=== PATIENT | male | born 1965 | race Caucasian/White ===

== ENCOUNTER 2019-08-03 11:46 | Emergency (ER) | payer OTHER ==
[2019-08-03] MEDS ORDERED: NA CHLORIDE 0.9% 1,000 ML ONE (12:07)
--- NOTE | 2019-08-03 12:34 | RAD REPORT ---
EXAM DESCRIPTION: Johnny Single View08/03/2019 12:25 pm CLINICAL HISTORY: Hypertension COMPARISON: 2011 FINDINGS: The lungs appear clear of acute infiltrate. The heart is normal size IMPRESSION: No acute abnormalities displayed
[2019-08-03 13:03] LABS: Absolute Lymphocytes (CBC) 1.7 K/uL (0.7-4.9); Basophils % 0.6 % (0-1.3); Lymphocytes % 16.8 % (15.3-44.8); MPV 7.2 fL (7.6-11.3)
[2019-08-03 13:10] LABS: Protime INR 1.03
[2019-08-03 13:58] LABS: ALT/SGPT 58 U/L (12-78); AST/SGOT 29 U/L (15-37); Albumin 3.7 g/dL (3.4-5.0); Alkaline Phosphatase 89 U/L (45-117); BUN Blood Urea Nitrogen 15 mg/dL (7-18); Bicarbonate 25 mmol/L (21-32); Bilirubin Direct 0.2 mg/dL (0-0.2); Bilirubin Total 0.8 mg/dL (0.2-1.0); Creatine Phosphokinase 81 U/L (39-308); Glucose Level 92 mg/dL (74-106); Magnesium 2.4 mg/dL (1.8-2.4); NT PRO-BNP 24 pg/mL (<125); Potassium 3.7 mmol/L (3.5-5.1); Protein, Total 7.5 g/dL (6.4-8.2); Sodium Level 142 mmol/L (136-145); Troponin (Emerg Dept Use Only) < 0.02 ng/mL (0.0-0.045)
--- NOTE | 2019-08-03 14:29 | EDPHYS ---
Physician Documentation [facility] Name: Rico Mcclure Age: 54 yrs Sex: Male : 1965 Arrival Date: 08/03/2019 Time: 11:47 Bed 16 Private MD: ED Physician Valdez Miles HPI: 08/03 12:05 This 54 yrs old Male presents to ER via EMS with complaints of Heat Exposure. cp 12:05 The patient has experienced syncope, lost consciousness. Onset: The symptoms/episode cp began/occurred just prior to arrival. 12:05 Duration: This was a single episode, that lasted an unknown period of time. Context: cp occurred at work, occurred while the patient was sitting, Just prior to the episode the patient experienced lightheadedness, Patient reports he was working outside all morning, started getting lightheaded so he went and sat in truck. Patient reports after sitting in truck he believes he passed out briefly. Historical: - Allergies: 11:53 No Known Allergies; jl7 - Home Meds: 11:53 Ukno BP medication [Active]; jl7 - PMHx: 11:53 Hypertension; jl7 - Immunization history:: Adult Immunizations unknown. - Social history:: Smoking status: Patient/guardian denies using tobacco. - Ebola Screening: : No symptoms or risks identified at this time. ROS: 12:10 Constitutional: Negative for body aches, chills, fever, poor PO intake. cp 12:10 Eyes: Negative for injury, pain, redness, and discharge. cp 12:10 ENT: Negative for drainage from ear(s), ear pain, sore throat, difficulty swallowing, difficulty handling secretions. 12:10 Cardiovascular: Negative for chest pain, edema, palpitations. 12:10 Respiratory: Negative for cough, shortness of breath, wheezing. 12:10 Abdomen/GI: Negative for abdominal pain, vomiting, diarrhea, constipation, anorexia, black/tarry stool, rectal bleeding. 12:10 Back: Negative for pain at rest, pain with movement. 12:10 : Negative for urinary symptoms, difficulty urinating. 12:10 Neuro: Positive for syncope, Negative for altered mental status, headache, weakness. 12:10 All other systems are negative. Exam: 11:55 ECG was reviewed by the Attending Physician. cp 12:15 Constitutional: The patient appears in no acute distress, alert, awake, cp non-diaphoretic, non-toxic, well developed, well nourished. 12:15 Head/Face: Normocephalic, atraumatic. cp 12:15 Eyes: Periorbital structures: appear normal, Pupils: equal, round, and reactive to light and accomodation, Extraocular movements: intact throughout, Conjunctiva: normal, no exudate, no injection, Sclera: no appreciated abnormality, Lids and lashes: appear normal, bilaterally. 12:15 ENT: External ear(s): are unremarkable, Ear canal(s): are normal, clear, TM's: dullness, bilaterally, Nose: is normal, Mouth: is normal, Posterior pharynx: is normal, airway is patent, no erythema, no exudate. 12:15 Neck: ROM/movement: is normal, is supple, without pain, no range of motions limitations, no nuchal rigidity. 12:15 Chest/axilla: Inspection: normal, Palpation: is normal, no crepitus, no tenderness. 12:15 Cardiovascular: Rate: normal, Rhythm: regular, Pulses: Pulses are 2+ in right radial artery and left radial artery. Heart sounds: murmur, not appreciated, Edema: is not appreciated, JVD: is not appreciated. 12:15 Respiratory: the patient does not display signs of respiratory distress, Respirations: normal, no use of accessory muscles, no retractions, no splinting, no tachypnea, labored breathing, is not present, Breath sounds: are clear throughout, no decreased breath sounds, no stridor, no wheezing. 12:15 Abdomen/GI: Inspection: abdomen appears normal, Bowel sounds: active, all quadrants, Palpation: abdomen is soft and non-tender, in all quadrants, rebound tenderness, is not appreciated, voluntary guarding, is not appreciated, involuntary guarding, is not appreciated. 12:15 Back: pain, is absent, ROM is normal. 12:15 Skin: no rash present. 12:15 Neuro: Orientation: to person, place \T\ time. Mentation: is normal, Cerebellar function: is grossly normal, Motor: moves all fours, strength is normal, Sensation: is normal. Vital Signs: 11:53 BP 124 / 83; Pulse 75; Resp 16 S; Temp 98.2(O); Pulse Ox 97% on R/A; Pain 0/10; jl7 13:00 BP 126 / 83; Pulse 81; Resp 16 S; Pulse Ox 98% on R/A; jl7 14:00 BP 122 / 84; Pulse 87; Resp 16 S; Pulse Ox 100% on R/A; Pain 0/10; jl7 MDM: 11:55 Patient medically screened. 14:27 Data reviewed: vital signs, nurses notes, lab test result(s), EKG, radiologic studies, cp plain films, and as a result, I will discharge patient. 14:27 Differential Diagnosis: cardiac arrhythmia, GI bleed, idiopathic syncope, seizure, cp vasovagal episode. Test interpretation: by ED physician or midlevel provider: ECG, plain radiologic studies. Counseling: I had a detailed discussion with the patient and/or guardian regarding: the historical points, exam findings, and any diagnostic results supporting the discharge/admit diagnosis, lab results, radiology results, to return to the emergency department if symptoms worsen or persist or if there are any questions or concerns that arise at home. Response to treatment: the patient's symptoms have markedly improved after treatment, the patient's condition has returned to base line, patient is well hydrated. and as a result, I will discharge patient. 08/03 11:50 Order name: Basic Metabolic Panel; Complete Time: 14:02 08/03 14:03 Interpretation: Normal except: CL 108; GFR 59; CA 8.4. 08/03 11:50 Order name: CBC with Diff; Complete Time: 13:36 08/03 13:36 Interpretation: Normal except: RBC 5.50; HCT 51.0; MPV 7.2; NORMAN% 74.0. 08/03 11:50 Order name: LFT's; Complete Time: 14:02 08/03 14:02 Interpretation: Normal except: GLOB 3.8; A/G 1.0. 08/03 11:50 Order name: Magnesium; Complete Time: 14:02 08/03 11:50 Order name: NT PRO-BNP; Complete Time: 14:02 08/03 11:50 Order name: PT-INR; Complete Time: 13:36 08/03 11:50 Order name: Troponin (emerg Dept Use Only); Complete Time: 14:02 08/03 11:50 Order name: XRAY Chest (1 view); Complete Time: 13:36 cp 08/03 11:50 Order name: EKG; Complete Time: 11:53 cp 08/03 11:50 Order name: Cardiac monitoring; Complete Time: 12:15 cp 08/03 11:50 Order name: CPK; Complete Time: 14:02 cp 08/03 13:54 Order name: Glucose, Ancillary Testing; Complete Time: 14:02 EDMS 08/03 14:15 Order name: Urine Dipstick--Ancillary (enter results) 08/03 11:50 Order name: EKG - Nurse/Tech; Complete Time: 12:15 cp 08/03 11:50 Order name: IV Saline Lock; Complete Time: 12:16 cp 08/03 11:50 Order name: Labs collected and sent; Complete Time: 12:16 cp 08/03 11:50 Order name: O2 Per Protocol; Complete Time: 12:15 cp 08/03 11:50 Order name: O2 Sat Monitoring; Complete Time: 12:15 08/03 11:50 Order name: Urine Dipstick-Ancillary (obtain specimen); Complete Time: 14:23 cp 08/03 12:13 Order name: Labs - recollect needed; Complete Time: 12:54 bd EC:55 Rate is 73 beats/min. Rhythm is regular. CA interval is normal. QRS interval is normal. cp QT interval is normal. Interpreted by me. Reviewed by me. Administered Medications: 12:15 Drug: NS 0.9% 1000 ml Route: IV; Rate: 1 bolus; Site: right wrist; jl7 13:55 Follow up: Response: No adverse reaction; IV Status: Completed infusion; IV Intake: jl7 1000ml Disposition: 16:23 Co-signature as Attending Physician, Valdez Miles MD. rn Disposition: 08/03/19 14:28 Discharged to Home. Impression: Heat syncope. - Condition is Stable. - Discharge Instructions: Heat Exhaustion Information, Form - Excuse from Work, School, or Physical Activity. - Medication Reconciliation Form, Thank You Letter, Antibiotic Education, Prescription Opioid Use form. - Follow up: Private Physician; When: 2 - 3 days; Reason: Recheck today's complaints. - Problem is new. - Symptoms have improved. Signatures: Dispatcher [employer] EDCO Sigrid López Roman, MD MD rn Gurinder Queen PA PA cp Leal, Jahala, RN RN jl7 Corrections: (The following items were deleted from the chart) 14:03 14:02 Normal except: CL 108; GFR 59. cp cp 14:41 14:28 08/03/2019 14:28 Discharged to Home. Impression: Heat syncope. Condition is jl7 Stable. Forms are Medication Reconciliation Form, Thank You Letter, Antibiotic Education, Prescription Opioid Use. Follow up: Private Physician; When: 2 - 3 days; Reason: Recheck today's complaints. Problem is new. Symptoms have improved. cp
--- NOTE | 2019-08-03 14:29 | ER ---
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 Pt was A\\T\\Ox4, pale and diaphoretic upon EMS arrival. Pt currently pink, warm and dry on arrival to ED. Transition of care: patient was not received from another setting of care. Onset of symptoms was August 03, 2019. Risk Assessment: Do you want to hurt yourself or someone else? Patient reports no desire to harm self or others. Initial Sepsis Screen: Does the patient meet any 2 criteria? Yes Does the patient have a suspected source of infection? No. Patient's initial sepsis screen is negative. Care prior to arrival: Medication(s) given: Normal saline infusion, 500 mL, IV initiated. 18 GA, in the right wrist, Glucose check: 115. 11:47 Method Of Arrival: EMS: [facility] jl7 11:47 Acuity: JOVAN 3 jl7 Triage Assessment: 11:53 General: Appears in no apparent distress. uncomfortable, Behavior is calm, cooperative, jl7 appropriate for age. Pain: Denies pain. Neuro: Level of Consciousness is awake, alert, obeys commands, Oriented to person, place, time, situation. Cardiovascular: Heart tones S1 S2 present Patient's skin is warm and dry. Rhythm is regular. Respiratory: Airway is patent Respiratory effort is even, unlabored, Respiratory pattern is regular, symmetrical, Breath sounds are clear bilaterally. Derm: Skin is pink, warm \\T\\ dry. Historical: - Allergies: 11:53 No Known Allergies; jl7 - Home Meds: 11:53 Uknown BP medication [Active]; jl7 - PMHx: 11:53 Hypertension; jl7 - Immunization history:: Adult Immunizations unknown. - Social history:: Smoking status: Patient/guardian denies using tobacco. - Ebola Screening: : No symptoms or risks identified at this time. Screenin:54 Abuse screen: Denies threats or abuse. Denies injuries from another. Nutritional jl7 screening: No deficits noted. Tuberculosis screening: No symptoms or risk factors identified. Fall Risk IV access (20 points). Total Deleon Fall Scale indicates No Risk (0-24 pts). Assessment: 11:54 General: See triage assessment. jl7 13:00 Reassessment: Patient appears in no apparent distress at this time. Patient and/or jl7 family updated on plan of care and expected duration. Pain level reassessed. Patient is alert, oriented x 3, equal unlabored respirations, skin warm/dry/pink. Patient denies pain at this time. 14:00 Reassessment: Patient appears in no apparent distress at this time. No changes from jl7 previously documented assessment. Patient and/or family updated on plan of care and expected duration. Pain level reassessed. Patient is alert, oriented x 3, equal unlabored respirations, skin warm/dry/pink. Vital Signs: 11:53 BP 124 / 83; Pulse 75; Resp 16 S; Temp 98.2(O); Pulse Ox 97% on R/A; Pain 0/10; jl7 13:00 BP 126 / 83; Pulse 81; Resp 16 S; Pulse Ox 98% on R/A; jl7 14:00 BP 122 / 84; Pulse 87; Resp 16 S; Pulse Ox 100% on R/A; Pain 0/10; jl7 ED Course: 11:47 Patient arrived in ED. jl7 11:48 Gurinder Queen PA is PHCP. cp 11:48 Valdez Miles MD is Attending Physician. cp 11:51 Triage completed. jl7 11:53 Arm band placed on right wrist. jl7 11:54 Patient has correct armband on for positive identification. Placed in gown. Bed in low jl7 position. Call light in reach. Side rails up X2. radiation monitor on. Pulse ox on. NIBP on. Warm blanket given. 11:54 Maintain EMS IV. Dressing intact. Good blood return noted. Site clean \\T\\ dry. Gauge \\T\\ jl 7 site: 18 Right wrist. 11:56 Rosendo Black RN is Primary Nurse. jl7 12:26 XRAY Chest (1 view) In Process Unspecified. EDMS 13:57 Awaiting lab results. jl7 14:00 Urine collected: clean catch specimen, clear. 3 14:40 No provider procedures requiring assistance completed. IV discontinued, intact, jl7 bleeding controlled, No redness/swelling at site. Pressure dressing applied. Administered Medications: 12:15 Drug: NS 0.9% 1000 ml Route: IV; Rate: 1 bolus; Site: right wrist; jl7 13:55 Follow up: Response: No adverse reaction; IV Status: Completed infusion; IV Intake: jl7 1000ml Intake: 13:55 IV: 1000ml; Total: 1000ml. jl7 Outcome: 14:28 Discharge ordered by . nadya 14:40 Discharged to home ambulatory. [facility] [place] 14:40 Condition: stable 14:40 Discharge instructions given to patient, Instructed on discharge instructions, follow up and referral plans. Demonstrated understanding of instructions, follow-up care. 14:41 Patient left the ED. jl7 Signatures: Dispatcher [employer] EDCT Gurinder Queen PA PA cp Leal, Jahala, RN RN jl7 Ester Suero 3
[2019-08-03 14:33] LABS: Urine Blood NEGATIVE (NEG); Urine Glucose NEGATIVE (NEG); Urine Protein 1+ (NEG)
[2019-08-03 14:47] VITALS: TEMP 98.2
[2019-08-03 14:50] VITALS: BP 122/84; O2SAT 100
--- NOTE | 2019-08-03 16:56 | EKG ---
Test Date: 2019-08-03 Test Time: 11:47:15 Director [employer]: PREMA MEASUREMENT RESULTS: Intervals: Rate: 73 OK: 150 QRSD: 84 QT: 384 QTc: 423 [place]: P: 31 OK: 150 QRS: 27 T: 37 INTERPRETIVE STATEMENTS: Normal sinus rhythm Normal ECG Compared to ECG 11/30/2016 15:40:27 Sinus tachycardia no longer present Electronically Signed On 08-03-19 16:54:43 CDT by Colten Ochoa
== END 2019-08-03 14:41 | disposition home or self-care (01) ==
LOC: ER 11:46
DX: T67.1XXA Heat syncope, initial encounter (principal); X58.XXXA Exposure to other specified factors, initial encounter; Y93.89 Activity, other specified; Y92.89 Other specified places as the place of occurrence of the external cause; Y99.8 Other external cause status; I10 Essential (primary) hypertension
CPT/HCPCS: 96361; 93005; 85025; 80048; 36415; 83735; 82550; 85610; 82962; 80076; 81003; 84484; 83880; 71045; 96360; 99284; J7030

== ENCOUNTER 2023-09-17 07:57 | Emergency (ER) | payer OTHER ==
--- NOTE | 2023-09-17 08:53 | RAD REPORT ---
EXAM DESCRIPTION: CT - Head Brain Wo Cont - 09/17/2023 8:46 am CLINICAL HISTORY: Syncope COMPARISON: none TECHNIQUE: Computed axial tomography of the head was obtained. IV contrast was not requested. All CT scans are performed using dose optimization technique as appropriate and may include automated exposure control or mA/KV adjustment according to patient size. FINDINGS: An intracranial bleed is not seen The ventricles are normal in caliber No significant hypodense areas within the brain visualized No extra-axial fluid collection is noted. Fluid within the sinuses/ mastoids is not seen IMPRESSION: No acute intracranial abnormality is seen If patient's symptoms persist MRI of the brain would be recommended
[2023-09-17 08:57] LABS: Hematocrit 54.6 % (39.6-49.0); Lymphocytes % 12.2 % (15.3-44.8); MCV 92.5 fL (80-100); MPV 7.4 fL (7.6-11.3); Platelets 207 thou/uL (152-406)
[2023-09-17 09:02] LABS: Protime INR 0.99
[2023-09-17 09:14] LABS: Albumin 3.6 g/dL (3.4-5.0); Bilirubin Direct 0.1 mg/dL (0-0.2); Bilirubin Indirect, Calculated 0.3 mg/dL (0.2-0.8); Bilirubin Total 0.4 mg/dL (0.2-1.0); Magnesium 2.2 mg/dL (1.6-2.4); Potassium 3.7 mEq/L (3.5-5.1); Protein, Total 7.6 g/dL (6.4-8.2); Troponin High Sensitivity 6.4 pg/mL (<58.9)
[2023-09-17] MEDS ORDERED: ACETAMINOPHEN 500 MG TAB ONE (09:23)
[2023-09-17] MEDS ORDERED: NA CHLORIDE 0.9% 1,000 ML ONE (09:23)
--- NOTE | 2023-09-17 10:51 | RAD REPORT ---
EXAM DESCRIPTION: CT - Chest For Pe Angio - 09/17/2023 10:38 am CLINICAL HISTORY: Chest pain COMPARISON: None. TECHNIQUE: Dynamically enhanced axial 3 mm thick images of the chest were obtained during administra tion of 100 mL Isovue 370 IV contrast. Coronal and oblique reconstruction images were generated and r eviewed. Exam utilizes a protocol for optimal evaluation of pulmonary arterial tree. Maximum intensity projections 3D imaging was utilized All CT scans are performed using dose optimization technique as appropriate and may include automated exposure control or mA/KV adjustment according to patient size. FINDINGS: A pulmonary embolus is not seen. A thoracic aortic aneurysm is not noted. A pleural effusion is not seen. A pericardial effusion is not seen. A lung consolidation is not present. Mild ground-glass opacities left lung IMPRESSION: Negative for a pulmonary embolism.
--- NOTE | 2023-09-17 11:00 | RAD REPORT ---
EXAM DESCRIPTION: Johnny Single View09/17/2023 10:23 am CLINICAL HISTORY: Cough COMPARISON: 2018 FINDINGS: The lungs appear clear of acute infiltrate. The heart is normal size IMPRESSION: No acute abnormalities displayed
--- NOTE | 2023-09-17 11:23 | ER ---
Nurse's Notes [facility] Name: Rico Mcclure Age: 58 yrs Sex: Male : 1965 Arrival Date: 09/17/2023 Time: 07:57 Bed 20 Private MD: Diagnosis: Syncope Near;syncope;headache;dehydration Presentation: 09/17 08:12 Chief complaint: EMS states: Pt had reported not feeling well with flu like symptoms kd3 that's start about a week ago. Pt states that today he was driving to work and doesn't remember some parts of the drive. When he got to work, pt got out of his car and then woke up on the ground in the parking lot. Pt states that the back of his head hurt and he has a headache. Coronavirus screen: Vaccine status: Patient reports being unvaccinated. Ebola Screen: No symptoms or risks identified at this time. Initial Sepsis Screen: Does the patient meet any 2 criteria? No. Patient's initial sepsis screen is negative. Does the patient have a suspected source of infection? No. Patient's initial sepsis screen is negative. Risk Assessment: Do you want to hurt yourself or someone else? Patient reports no desire to harm self or others. Onset of symptoms was September 17, 2023. 08:12 Method Of Arrival: EMS: [facility] kd3 08:12 Acuity: JOVAN 3 kd3 Triage Assessment: 08:15 General: Appears in no apparent distress. Behavior is calm, cooperative. Pain: kd3 Complains of pain in scalp. Neuro: Reports headache occipital area. Neuro: Level of Consciousness is awake, alert, obeys commands, Oriented to person, place, time, situation. Respiratory: Airway is patent Trachea midline Respiratory effort is even, unlabored, Respiratory pattern is regular, symmetrical. Historical: - Allergies: 08:15 No Known Allergies; kd3 - PMHx: 08:15 Hypertension; kd3 - Immunization history:: Adult Immunizations up to date. - Social history:: Smoking status: Patient denies any tobacco usage or history of. - Family history:: not pertinent. Screenin:35 [facility] ED Fall Risk Assessment (Adult) History of falling in the last 3 months, kd3 including since admission No falls in past 3 months (0 pts) Confusion or Disorientation No (0 pts) Intoxicated or Sedated No (0 pts) Impaired Gait No (0 pts) Mobility Assist Device Used No (0 pt) Altered Elimination No (0 pt) Score/Fall Risk Level 0 - 2 = Low Risk Maintained a safe environment. Abuse screen: Denies threats or abuse. Denies injuries from another. Nutritional screening: No deficits noted. Tuberculosis screening: No symptoms or risk factors identified. Assessment: 09:53 General: Appears in no apparent distress. Behavior is calm, cooperative. Neuro: Level kd3 of Consciousness is awake, alert, obeys commands, Oriented to person, place, time, situation. Cardiovascular: Rhythm is regular. 10:27 Reassessment: No changes from previously documented assessment. Patient and/or family kd3 updated on plan of care and expected duration. Pain level reassessed. Patient is alert, oriented x 3, equal unlabored respirations, skin warm/dry/pink. Vital Signs: 08:12 BP 141 / 93; Pulse 91; Resp 16; Temp 99(O); Pulse Ox 97% on R/A; Weight 82.1 kg; Height kd3 5 ft. 8 in. ; 09:53 BP 145 / 94; Pulse 83; Resp 16; Pulse Ox 94% on R/A; kd3 10:27 BP 126 / 81; Pulse 85; Resp 15; Pulse Ox 100% on R/A; kd3 11:09 BP 135 / 87; Pulse 91; Resp 16; Pulse Ox 99% on R/A; kd3 08:12 Body Mass Index 27.52 (82.10 kg, 172.72 cm) kd3 ED Course: 08:12 Patient arrived in ED. kd3 08:13 Inserted saline lock: 20 gauge in right antecubital area, using aseptic technique. ls5 Blood collected. 08:14 Bernadette Morley MD is Attending Physician. cp3 08:15 Triage completed. kd3 08:15 Arm band placed on right wrist. kd3 08:17 Shea Wang, IESHA is Primary Nurse. kd3 08:47 CT Head Brain wo Cont In Process Unspecified. EDMS 08:59 Troponin HS Sent. kd3 08:59 PT-INR Sent. kd3 08:59 NT PRO-BNP Sent. kd3 08:59 Magnesium Sent. kd3 08:59 LFT's Sent. kd3 08:59 D-Dimer Sent. kd3 08:59 Basic Metabolic Panel Sent. kd3 10:25 XRAY Chest (1 view) In Process Unspecified. EDMS 10:39 CT Chest For PE Angio In Process Unspecified. EDMS 11:22 Jose David Hess DO is Referral Physician. cp3 11:36 No provider procedures requiring assistance completed. IV discontinued, intact, kd3 bleeding controlled, No redness/swelling at site. Pressure dressing applied. 11:37 Patient has correct armband on for positive identification. Provided Education on: . kd3 Administered Medications: 09:13 Drug: NS 0.9% IV 1000 ml IV at 1000 ml once Route: IV; Rate: 1000 ml; Site: right kd3 antecubital; 09:13 Drug: Acetaminophen PO 1000 mg PO once Route: PO; kd3 Medication: 11:36 VIS not applicable for this client. kd3 Outcome: 11:23 Discharge ordered by . cp3 11:36 Discharged to home ambulatory, kd3 11:36 Condition: stable 11:36 Discharge instructions given to patient, Instructed on discharge instructions, follow up and referral plans. Demonstrated understanding of instructions, follow-up care, 11:37 Patient left the ED. kd3 Signatures: Dispatcher [employer] Bernadette Fall MD MD cp3 Shea Wang RN RN kd3 Mayank Osei 5
--- NOTE | 2023-09-17 11:23 | EDPHYS ---
Physician Documentation [facility] Name: Keira Gil Age: 58 yrs Sex: Male : 1965 Arrival Date: 09/17/2023 Time: 07:57 Bed 20 Private MD: ED Physician Bernadette Morley HPI: 09/17 08:37 This 58 yrs old Male presents to ER via EMS with complaints of Syncope. cp3 08:37 Patient is a 58-year-old male with a past medical history significant for hypertension cp3 who self discontinued his medication a year ago presents to the ED after having a syncopal episode while at work today. The patient endorses that he had some pain near his kidney area and then felt dizzy and passed out. Patient endorses that he is not really feeling dizzy anymore and has been working quite a bit of shifts at high number of shifts at his job and has not been staying well-hydrated. Patient also endorses a mild cough and upper respiratory symptoms. Patient denies chest pain, shortness of breath. No back or flank pain currently. Patient presented by EMS. EMS endorses that patient was initially given refused but decided to transport secondary to loss of consciousness. Historical: - Allergies: 08:15 No Known Allergies; kd3 - PMHx: 08:15 Hypertension; kd3 - Immunization history:: Adult Immunizations up to date. - Social history:: Smoking status: Patient denies any tobacco usage or history of. - Family history:: not pertinent. ROS: 08:37 Constitutional: Negative for fever, chills, and weight loss, Eyes: Negative for injury, cp3 pain, redness, and discharge, ENT: Negative for injury, pain, and discharge, Neck: Negative for injury, pain, and swelling, Cardiovascular: Negative for chest pain, palpitations, and edema, Respiratory: Negative for shortness of breath, cough, wheezing, and pleuritic chest pain, Abdomen/GI: Negative for abdominal pain, nausea, vomiting, diarrhea, and constipation, Back: Negative for injury and pain, : Negative for injury, bleeding, discharge, and swelling, MS/Extremity: Negative for injury and deformity, Skin: Negative for injury, rash, and discoloration, Neuro: Negative for headache, weakness, numbness, tingling, and seizure, Psych: Negative for depression, anxiety, suicide ideation, homicidal ideation, and hallucinations, Allergy/Immunology: Negative for hives, rash, and allergies, Endocrine: Negative for neck swelling, polydipsia, polyuria, polyphagia, and marked weight changes, Hematologic/Lymphatic: Negative for swollen nodes, abnormal bleeding, and unusual bruising, 08:37 ENT: Positive for rhinorrhea, sinus congestion, 08:37 Cardiovascular: Positive for orthopnea, 08:37 Neuro: Positive for syncope, Exam: 08:37 Constitutional: This is a well developed, well nourished patient who is awake, alert, cp3 and in no acute distress. Head/Face: Normocephalic, atraumatic. Eyes: Pupils equal round and reactive to light, extra-ocular motions intact. Lids and lashes normal. Conjunctiva and sclera are non-icteric and not injected. Cornea within normal limits. Periorbital areas with no swelling, redness, or edema. ENT: Nares patent. No nasal discharge, no septal abnormalities noted. Tympanic membranes are normal and external auditory canals are clear. Oropharynx with no redness, swelling, or masses, exudates, or evidence of obstruction, uvula midline. Mucous membranes moist. Neck: Trachea midline, no thyromegaly or masses palpated, and no cervical lymphadenopathy. Supple, full range of motion without nuchal rigidity, or vertebral point tenderness. No Meningismus. Chest/axilla: Normal chest wall appearance and motion. Nontender with no deformity. No lesions are appreciated. Cardiovascular: Regular rate and rhythm with a normal S1 and S2. No gallops, murmurs, or rubs. Normal PMI, no JVD. No pulse deficits. Respiratory: Lungs have equal breath sounds bilaterally, clear to auscultation and percussion. No rales, rhonchi or wheezes noted. No increased work of breathing, no retractions or nasal flaring. Abdomen/GI: Soft, non-tender, with normal bowel sounds. No distension or tympany. No guarding or rebound. No evidence of tenderness throughout. Back: No spinal tenderness. No costovertebral tenderness. Full range of motion. Skin: Warm, dry with normal turgor. Normal color with no rashes, no lesions, and no evidence of cellulitis. MS/ Extremity: Pulses equal, no cyanosis. Neurovascular intact. Full, normal range of motion. Neuro: Awake and alert, GCS 15, oriented to person, place, time, and situation. Cranial nerves II-XII grossly intact. Motor strength 5/5 in all extremities. Sensory grossly intact. Cerebellar exam normal. Normal gait. Psych: Awake, alert, with orientation to person, place and time. Behavior, mood, and affect are within normal limits. Vital Signs: 08:12 BP 141 / 93; Pulse 91; Resp 16; Temp 99(O); Pulse Ox 97% on R/A; Weight 82.1 kg; Height kd3 5 ft. 8 in. ; 09:53 BP 145 / 94; Pulse 83; Resp 16; Pulse Ox 94% on R/A; kd3 10:27 BP 126 / 81; Pulse 85; Resp 15; Pulse Ox 100% on R/A; kd3 11:09 BP 135 / 87; Pulse 91; Resp 16; Pulse Ox 99% on R/A; kd3 08:12 Body Mass Index 27.52 (82.10 kg, 172.72 cm) kd3 MDM: 08:14 Patient medically screened. cp3 08:37 Differential Diagnosis: cardiac arrhythmia, cerebrovascular accident, idiopathic cp3 syncope, seizure, sepsis, vasovagal episode. Data reviewed: vital signs, nurses notes, EMS record, lab test result(s), EKG, radiologic studies. ED course: ekg interpreted by oh- rate 93, normal sinus rhythm, no evidence of acute mi. 11:24 Consideration of Admission/Observation Escalation of care including cp3 admission/observation considered. patient declines hospitalization at this time. I considered the following discharge prescriptions or medication management in the emergency department Medications were administered in the Emergency Department. See MAR. 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 Historians other than the Patient: EMS: patient awake and alert upon their evaluation. Response to treatment: the patient's symptoms have markedly improved after treatment. 09/17 08:37 Order name: Basic Metabolic Panel; Complete Time: 10:17 cp3 09/17 10:18 Interpretation: NA 136; K 3.7; CL 102; CO2 29; ANION GAP 8.7; GLUC 95; BUN 14; CRE cp3 1.19; GFR 70; CA 8.7. 09/17 08:37 Order name: CBC with Diff; Complete Time: :16 cp3 09/17 10:18 Interpretation: Within normal limits: WBC 7.80; RBC 5.90; HGB 18.8; HCT 54.6; MCV 92.5; cp3 MCH 31.9; MCHC 34.5; PLT 207; RDW 13.6; MPV 7.4; NORMAN% 70.9; LYM% 12.2; MN% 15.0; EOSINOPHIL % 1.2; BASO% 0.7; NEUT A 5.5; LYMA 1.0; MNA 1.2; EOSA 0.1; BASOA 0.1. 09/17 08:37 Order name: D-Dimer; Complete Time: 09:16 cp3 09/17 10:21 Interpretation: Abnormal. cp3 09/17 08:37 Order name: LFT's; Complete Time: 10:17 cp3 09/17 10:18 Interpretation: AST 29; ALT 34; ALK 81; BILIT 0.4; BILID 0.1; IBILI, CALC 0.3; TP 7.6; cp3 ALB 3.6; GLOB 4.0; A/G 0.9. 09/17 08:37 Order name: Magnesium; Complete Time: 10:17 cp3 09/17 08:37 Order name: NT PRO-BNP; Complete Time: 10:17 cp3 09/17 11:24 Interpretation: NT PRO-BNP 33. cp3 09/17 08:37 Order name: PT-INR; Complete Time: 09:16 cp3 09/17 08:37 Order name: Troponin HS; Complete Time: 10:17 cp3 09/17 10:21 Interpretation: Within normal limits. cp3 09/17 08:37 Order name: XRAY Chest (1 view); Complete Time: 11:24 cp3 09/17 11:24 Interpretation: Per Radiologist's finding(s): [place] [id number] [facility] REPORT Name: KEIRA GIL Acct Number: [id number] :1965 Age:58 Sex:M Ord Phys: Bernadette Morley MD Unit Number: [id number] [facility]: U Status: REG ER ER Exam Date: 09/17/23 EXAM DESCRIPTION: Johnny Arcos View09/17/2023 10:23 am CLINICAL HISTORY: Cough COMPARISON: 2019 FINDINGS: The lungs appear clear of acute infiltrate. The heart is normal size IMPRESSION: No acute abnormalities displayed Signed By: Filipe Gilmore MD Signed AT: 09/17/23 1100 . 09/17 08:37 Order name: CT Head Brain wo Cont; Complete Time: 09:16 cp3 09/17 10:21 Order name: CT Chest For PE Angio; Complete Time: 11:00 cp3 09/17 08:37 Order name: EKG; Complete Time: 08:38 cp3 09/17 08:37 Order name: Cardiac monitoring; Complete Time: 08:59 cp3 09/17 08:37 Order name: Labs collected and sent; Complete Time: 08:59 cp3 09/17 08:37 Order name: O2 Per Protocol; Complete Time: 08:59 cp3 Administered Medications: 09:13 Drug: NS 0.9% IV 1000 ml IV at 1000 ml once Route: IV; Rate: 1000 ml; Site: right kd3 antecubital; 09:13 Drug: Acetaminophen PO 1000 mg PO once Route: PO; kd3 Disposition Summary: 09/17/23 11:23 Discharge Ordered Notes: Location: Home cp3 Condition: Stable cp3 Problem: new cp3 Symptoms: have improved cp3 Diagnosis - Syncope Near cp3 - syncope cp3 - headache cp3 - dehydration cp3 Followup: cp3 - With: Jose David Hess DO - When: - Reason: Recheck today's complaints Discharge Instructions: - Discharge Summary Sheet cp3 - Syncope cp3 Forms: - Medication Reconciliation Form cp3 - Thank You Letter cp3 - Antibiotic Education cp3 - Prescription Opioid Use cp3 - Patient Portal Instructions cp3 - Leadership Thank You Letter cp3 Prescriptions: - Ibuprofen 800 mg Oral Tablet - take 1 tablet ORAL route every 8 hours As needed take with food; 30 tablet; cp3 Refills: 0, Product Selection Permitted Signatures: Dispatcher [employer] Bernadette Fall MD MD cp3 Shea Wang RN RN kd3 Corrections: (The following items were deleted from the chart) 10:19 10:18 WBC 7.80; RBC 5.90; HGB 18.8; HCT 54.6; MCV 92.5; MCH 31.9; MCHC 34.5; PLT 207; cp3 RDW 13.6; MPV 7.4; NORMAN% 70.9; LYM% 12.2; MN% 15.0; EOSINOPHIL % 1.2; BASO% 0.7; NEUT A 5.5; LYMA 1.0; MNA 1.2; EOSA 0.1; BASOA 0.1. cp3
[2023-09-17 11:41] VITALS: TEMP 99
[2023-09-17 11:46] VITALS: BP 135/87; O2SAT 99
--- NOTE | 2023-09-19 13:54 | EKG ---
Test Date: 2023-09-17 Test Time: 08:08:07 Fighter Pilot: ROSLYN MEASUREMENT RESULTS: Intervals: Rate: 93 MS: 156 QRSD: 84 QT: 346 QTc: 430 [place]: P: 76 MS: 156 QRS: 54 T: 66 INTERPRETIVE STATEMENTS: Normal sinus rhythm Normal ECG Compared to ECG 08/03/2019 11:47:15 No significant changes Electronically Signed On 09-19-23 13:50:57 CDT by Denilson Cartagena
== END 2023-09-17 11:37 | disposition home or self-care (01) ==
LOC: ER 07:57
DX: R55 Syncope and collapse (principal); E86.0 Dehydration; R51.9 Headache, unspecified; I10 Essential (primary) hypertension
CPT/HCPCS: 93005; 85025; 80048; 36415; 83735; 85610; 85379; 80076; 84484; 83880; 70450; 71275; 71045; 99284; Q9967; J7030